=== PATIENT | male | born 1975 | race Hispanic/Latino ===

== ENCOUNTER 2019-12-23 | Emergency (ER) | payer SELFPAY ==
[2019-12-23] MEDS ORDERED: KEFLEX500 M1 PO (12:39)
== END 2019-12-23 12:55 | disposition home or self-care (01) | DRG 605 ==
DX: S61.311A Laceration without foreign body of left index finger with damage to nail, initial encounter (principal); S61.313A Laceration without foreign body of left middle finger with damage to nail, initial encounter; W29.8XXA Contact with other powered hand tools and household machinery, initial encounter; Y93.89 Activity, other specified; Y92.009 Unspecified place in unspecified non-institutional (private) residence as the place of occurrence of the external cause